=== PATIENT | female | born 1980 | race Two or more races ===

== ENCOUNTER 2021-12-17 19:38 | Emergency (ER) | payer MEDICAID ==
[~2021-12-17] VITALS: Ht 170.2 cm; Wt 70.8 kg
[2021-12-17 21:19] VITALS: BP 138/74
[2021-12-17] MEDS ORDERED: NEOM10DR11 RIGHT EAR (21:27)
== END 2021-12-17 21:41 | disposition home or self-care (01) ==
LOC: ER 19:53
DX: H60.91 Unspecified otitis externa, right ear (principal)